=== PATIENT | female | born 1980 | race Caucasian/White ===

== ENCOUNTER 2017-07-22 08:43 | Inpatient (IN) | payer MEDICAID ==
[~2017-07-22] VITALS: Ht 170.2 cm; Wt 104.3 kg
[2017-07-22] VITALS (7 sets, daily range): BP systolic 96–144; BP diastolic 52–79
--- NOTE | 2017-07-22 08:37 | Emergency Room Report ---
History of Present Illness General Source: Patient, EMS Present Illness HPI Patient 36-year-old female brought in by EMS after increased difficulty breathing. Patient gradual onset of symptoms. Patient had prior history of asthma. Patient noted to have previous hospitalizations for asthma. Patient was noted to be on breathing treatment by EMS. Patient had been taking 2 inhalers. The patient reports being a marijuana smoker. She states that she had recently been hospitalized at [facility]. She denies any fever. She reports having intermittent productive cough She denied any pain. History is limited by patient's acuity Allergies: Coded Allergies: PENICILLINS (Verified Allergy, Unknown, 07/22/17) SULFA (SULFONAMIDE ANTIBIOTICS) (Verified Allergy, Unknown, 07/22/17) Patient History Past Medical History: see triage record, asthma Reviewed Nursing Documentation: PMH: Agreed, PSxH: Agreed Review of Systems All Other Systems: limited - by acuity Physical Exam Sp02 EP Interpretation: reviewed, normal General Appearance: normal inspection, alert, GCS 15, moderate distress, obese Head: atraumatic ENT: normal ENT inspection, hearing grossly normal, normal voice Neck: normal inspection, full range of motion, supple, no bony tend Respiratory: normal inspection, no respiratory distress, no retraction, wheezing, expiration Cardiovascular #1: regular rate, rhythm, no edema Gastrointestinal: normal inspection, normal bowel sounds, non tender, soft, no guarding, no hernia Genitourinary: no CVA tenderness Musculoskeletal: normal inspection, back normal, normal range of motion Neurologic: normal inspection, alert, oriented x3, responsive, technical solutions consultant III-XII nml as tested, speech normal Psychiatric: normal inspection, judgement/insight normal, mood/affect normal Skin: normal inspection, normal color, no rash Medical Decision Making Diagnostic Impression: Primary Impression: Asthma exacerbation ER Course The patient presented for cough and difficulty breathing. Difficult differential diagnosis included bronchitis, pneumonia, asthma, foreign body, pertussis among others. The patient was given breathing treatments with with improvement in respiratory status. The patient was noted to have continued wheezing after steroids and treatment. She was given IV magnesium she was noted to have improvement in her blood pressure. The patient states she felt somewhat better however continued to have poor air movementThe chest x-ray one view read by radiology showed questionable right middle lobe infiltrate versus atelectasis. The patient was noted to have elevated white blood count. Dr. Fidel Rizvi was contacted for inpatient management. Labs Test 07/22/17 08:45 White Blood Count 20.1 K/UL (4.8-10.8) Red Blood Count 4.98 M/UL (4.20-5.40) Hemoglobin 15.3 G/DL (12.0-16.0) Hematocrit 45.3 % (37.0-47.0) Mean Corpuscular Volume 91 FL (80-99) Mean Corpuscular Hemoglobin 30.7 PG (27.0-31.0) Mean Corpuscular Hemoglobin Concent 33.7 G/DL (32.0-36.0) Red Cell Distribution Width 10.8 % (11.6-14.8) Platelet Count 344 K/UL (150-450) Mean Platelet Volume 5.5 FL (6.5-10.1) Neutrophils (%) (Auto) % (45.0-75.0) Lymphocytes (%) (Auto) % (20.0-45.0) Monocytes (%) (Auto) % (1.0-10.0) Eosinophils (%) (Auto) % (0.0-3.0) Basophils (%) (Auto) % (0.0-2.0) Sodium Level 141 mEQ/L (135-145) Potassium Level 3.6 mEQ/L (3.4-4.9) Chloride Level 100 mEQ/L (98-107) Carbon Dioxide Level 24 mEQ/L (20-30) Anion Gap 17 (5-15) Blood Urea Nitrogen 13 mg/dL (7-23) Creatinine 0.8 mg/dL (0.5-0.9) Estimat Glomerular Filtration Rate > 60 mL/min (>60) Glucose Level 182 mg/dL (74-106) Calcium Level 8.9 mg/dL (8.6-10.2) Total Bilirubin 0.2 mg/dL (0.0-1.2) Aspartate Amino Transf (AST/SGOT) 20 U/L (5-40) Alanine Aminotransferase (ALT/SGPT) 30 U/L (3-33) Alkaline Phosphatase 58 U/L (35-104) Total Protein 8.9 g/dL (6.6-8.7) Albumin 4.4 g/dL (3.5-5.2) Globulin 4.5 g/dL Albumin/Globulin Ratio 0.9 (1.0-2.7) Status: improved Disposition: ADMITTED INPATIENT Condition: Zechariah Clements Jul 22, 2017 08:37
[~2017-07-22 08:43] MED LIST: ALBUTEROL SULF8.5 GM INH; ATROVENT HFA12.9 GM IH
[2017-07-22] MEDS ORDERED: Albuterol/Ipratropium 3ml neb HHN ONE ×2 (08:45→09:45)
[2017-07-22] MEDS ORDERED: Solu-MEDROL 125mg Inj IVP ONE (08:45)
[2017-07-22 09:16] LABS: MEAN CORPUSCULAR HEMOGLOBIN 30.7 PG (27.0-31.0); MEAN CORPUSCULAR HGB CONC 33.7 G/DL (32.0-36.0); MEAN CORPUSCULAR VOLUME 91 FL (80-99); MEAN PLATELET VOLUME 5.5 FL (6.5-10.1); PLATELET COUNT 344 K/UL (150-450); RED BLOOD COUNT 4.98 M/UL (4.20-5.40); RED CELL DISTRIBUTION WIDTH 10.8 % (11.6-14.8); WHITE BLOOD COUNT 20.1 K/UL (4.8-10.8)
[2017-07-22 09:26] LABS: ALANINE AMINOTRANSFERASE 30 U/L (3-33); ALBUMIN/GLOBULIN RATIO 0.9 (1.0-2.7); ANION GAP 17 (5-15); ASPARTATE AMINO TRANSFERASE 20 U/L (5-40); CALCIUM 8.9 mg/dL (8.6-10.2); CARBON DIOXIDE 24 mEQ/L (20-30); CHLORIDE 100 mEQ/L (98-107); CREATININE 0.8 mg/dL (0.5-0.9); GLOMERULAR FILTRATION RATE > 60 mL/min (>60); HEMOLYSIS 6; POTASSIUM 3.6 mEQ/L (3.4-4.9); SODIUM 141 mEQ/L (135-145); TOTAL PROTEIN 8.9 g/dL (6.6-8.7)
[2017-07-22] MEDS ORDERED: LORazepam 1mg tab ORAL ONE (10:00)
[2017-07-22 10:30] LABS: BAND NEUTROPHILS % (MANUAL) 0 % (0-8); BASOPHILS % (MANUAL) 1 % (0-2); EOSINOPHILS % (MANUAL) 1 % (0-3); LYMPHOCYTES % (MANUAL) 12 % (20-45); NEUTROPHILS % (MANUAL) 80 % (45-75); PLATELET ESTIMATE ADEQUATE; PLATELET MORPHOLOGY NORMAL; TOTAL CELLS COUNTED 100
--- NOTE | 2017-07-22 10:42 | Diagnostic Imaging Report ---
Indication: Shortness of breath Technique: XRAY CHEST 1 V Comparison: None Findings: Cardiomediastinal silhouette is within normal limits. There is slight hazy appearance in the right medial lung base. There is no pneumothorax or pleural effusion. Osseous structures demonstrate no acute abnormality. Impression: Slight hazy appearance in the right medial lung base could represent atelectasis or may be projectional from overlying bronchovascular structures. Possibility of a subtle infiltrate cannot be completely excluded. Clinical correlation/followup recommended.
[2017-07-22] MEDS ORDERED: NORVASC10 MG ORAL (11:23)
[2017-07-22] MEDS ORDERED: ATROVENT HFA12.9 GM IH (11:23)
[2017-07-22] MEDS ORDERED: SINGULAIR10 MG ORAL (11:23)
[2017-07-22] MEDS ORDERED: LORAZEPAM1 MG ORAL (11:30)
[2017-07-22] MEDS ORDERED: SYMBICORT 16010.2 G1 IH (11:30)
[2017-07-22] MEDS ORDERED: TEMAZEPAM30 MG ORAL (11:30)
[2017-07-22] MEDS ORDERED: Morphine Sulfate 2mg/ml Inj IVP PRN (12:00)
[2017-07-22] MEDS ORDERED: LORazepam Inj 2mg/ml 1ml IV PRN (12:00)
[2017-07-22] MEDS ORDERED: Nitroglycerin Subl 0.4mg tab SL PRN (12:00)
[2017-07-22] MEDS ORDERED: Promethazine/Codeine 5ml UD ORAL PRN (12:00)
[2017-07-22 12:17] LABS: REFLEX LACTIC ACID YES OR NO YES
[2017-07-22] MEDS: Albuterol/Ipratropium 3ml neb HHN PRN ×2 (14:36→20:54)
[2017-07-22] MEDS: Solu-MEDROL 125mg Inj IV SCH ×2 (15:19→20:54)
[2017-07-22] MEDS: Ketorolac 30mg Inj IV PRN (15:23)
[2017-07-22] MEDS: DiphenhydrAMINE 50mg/ml Inj IVP PRN (18:35)
--- NOTE | 2017-07-22 19:17 | History & Physical ---
History and Physical History & Physicial H&P dictated [id number] dx asthma exacerbation TIAGO MANDUJANO M.D. Jul 22, 2017 19:17
[2017-07-22] MEDS: Theophylline ER 100mg ORAL SCH (20:54)
[2017-07-22] MEDS: Heparin 5000 units/ml inj SUBQ SCH (20:56)
[2017-07-23 00:04] VITALS: BP 121/72
[2017-07-23] MEDS: Solu-MEDROL 125mg Inj IV SCH ×3 (01:46→11:49)
[2017-07-23] MEDS: Albuterol/Ipratropium 3ml neb HHN PRN ×3 (01:53→14:00)
[2017-07-23] MEDS: Ketorolac 30mg Inj IV PRN (03:06)
[2017-07-23 04:00] VITALS: BP 146/58
--- NOTE | 2017-07-23 06:30 | History and Physical Report ---
DATE OF ADMISSION: 07/22/2017 REASON FOR ADMISSION: Asthma exacerbation. HISTORY OF PRESENT ILLNESS: This is a 36-year-old female with history of asthma, who presented to emergency room with shortness of breathing x1 day. 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 She states that she has had a cold for about a month. She was recently hospitalized 2 weeks ago for an asthma exacerbation and finished her prednisone taper 2 days ago. She does have a cough and runny nose. She denies any fevers. PAST MEDICAL HISTORY: Asthma, hypertension, anxiety, and restless legs syndrome. PAST SURGICAL HISTORY: Gallbladder removed. MEDICATIONS: Reviewed [employer]. PAST SOCIAL HISTORY: The patient does not smoke cigarettes. She does smoke marijuana at times, however, has not smoked in the last 2 weeks. Does not use any other drugs. Drinks alcohol occasionally. FAMILY HISTORY: Noncontributory. REVIEW OF SYSTEMS: Twelve-point review of systems is negative except for pertinent positives as mentioned above. PHYSICAL EXAMINATION: VITAL SIGNS: Temperature is 98.4 degrees, pulse is 114, respiratory rate 20, blood pressure is 135/79, and O2 saturation 100% on 4 liters. GENERAL: In no acute distress. The patient does not have any tripoding or respiratory distress. HEENT: Normocephalic and atraumatic. NECK: Supple. No JVD. LUNGS: Lungs have expiratory wheezing bilaterally. No crackles, rhonchi or rales. CARDIOVASCULAR: Regular rate and rhythm. Normal S1 and S2. ABDOMEN: Soft, nontender, nondistended, and obese. EXTREMITIES: No clubbing, cyanosis, or edema. SKIN: Normal skin on inspection. No rashes. DIAGNOSTIC DATA: Chest x-ray shows slight hazy appearance in the right medial lung, likely atelectasis, however, no infiltrates are seen. LABORATORY DATA: CBC, white count of 20, hemoglobin 15.3, and platelet count of 344,000. BMP, sodium 141, potassium is 3.6, chloride is 100, CO2 24, BUN is 13, and creatinine is 0.8. Lactic acid is 5.6. Urine toxicology is positive for marijuana. ASSESSMENT: 1. Asthma exacerbation, likely secondary to dust exposure from cleaning fans yesterday. 2. History of hypertension. 3. Anxiety. 4. Restless leg syndrome. 5. Obesity. PLAN: 1. Admit the patient to telemetry unit. 2. Pulmonary consult with Dr. Salcido. 3. Nebs as needed. 4. DuoNeb every 4 hour p.r.n. shortness of breath. 5. Solu-Medrol 60 mg IV q.6 h. 6. The patient likely needs much slower taper given her recurrent symptoms on recent hospitalization. 7. Check peak flow daily. Fidel Rizvi MD DR: Arsalan JOB#: [id number] CC:
[2017-07-23 07:53] LABS: MEAN CORPUSCULAR HEMOGLOBIN 32.7 PG (27.0-31.0); MEAN CORPUSCULAR HGB CONC 35.9 G/DL (32.0-36.0); MEAN CORPUSCULAR VOLUME 91 FL (80-99); MEAN PLATELET VOLUME 5.5 FL (6.5-10.1); PLATELET COUNT 281 K/UL (150-450); RED BLOOD COUNT 4.24 M/UL (4.20-5.40); RED CELL DISTRIBUTION WIDTH 11.1 % (11.6-14.8); WHITE BLOOD COUNT 20.5 K/UL (4.8-10.8)
[2017-07-23 08:29] VITALS: BP 139/75
[2017-07-23 08:30] LABS: ANION GAP 13 (5-15); CARBON DIOXIDE 20 MMOL/L (21-32); CHLORIDE 104 MMOL/L (98-107); CREATININE 0.9 MG/DL (0.55-1.30); GLOMERULAR FILTRATION RATE > 60 mL/min (>60); POTASSIUM 3.4 MMOL/L (3.5-5.1); SODIUM 137 MMOL/L (136-145)
[2017-07-23 08:38] LABS: REFLEX LACTIC ACID YES OR NO YES
[2017-07-23 08:44] LABS: CALCIUM 8.8 MG/DL (8.5-10.1)
[2017-07-23] MEDS ORDERED: Montelukast 10mg tablet ORAL SCH (09:00)
[2017-07-23] MEDS: DiphenhydrAMINE 50mg/ml Inj IVP PRN (09:39)
[2017-07-23] MEDS: Theophylline ER 100mg ORAL SCH (09:39)
[2017-07-23] MEDS: Heparin 5000 units/ml inj SUBQ SCH (09:40)
[2017-07-23 10:25] LABS: BAND NEUTROPHILS % (MANUAL) 0 % (0-8); BASOPHILS % (MANUAL) 0 % (0-2); EOSINOPHILS % (MANUAL) 0 % (0-3); LYMPHOCYTES % (MANUAL) 5 % (20-45); NEUTROPHILS % (MANUAL) 94 % (45-75); PLATELET ESTIMATE ADEQUATE; PLATELET MORPHOLOGY NORMAL; TOTAL CELLS COUNTED 100
[2017-07-23 11:55] VITALS: BP 115/71
--- NOTE | 2017-07-23 12:54 | Consultation ---
History of Present Illness General Date patient seen: Jul 23, 2017 Chief Complaint: Dyspnea/Respdistress Present Illness HPI 36-year-old female with hx of Asthma, morbid obesity brought in by EMS after increased difficulty breathing with gradual onset of symptoms. she was exposed to dust while cleaning up somebody's office. She was in respiratory distress and is admitted to telemetry for further work up. Allergies: Coded Allergies: LEVOFLOXACIN (Verified Allergy, Unknown, 07/22/17) PENICILLINS (Verified Allergy, Unknown, 07/22/17) SULFA (SULFONAMIDE ANTIBIOTICS) (Verified Allergy, Unknown, 07/22/17) SULFITE (Verified Allergy, Unknown, asthma exacerbation, 07/22/17) Medication History Scheduled Amlodipine Besylate (Norvasc), 10 MG ORAL DAILY, (Reported) Lorazepam* (Lorazepam*), 1 MG ORAL THREE TIMES A DAY, (Reported) Montelukast Sodium* (Singulair*), 10 MG ORAL DAILY, (Reported) Scheduled PRN Temazepam* (Temazepam*), 30 MG ORAL BEDTIME PRN for Insomnia, (Reported) Miscellaneous Medications Albuterol Sulfate* (Albuterol Sulfate Mdi*), 8.5 GM INH, (Reported) Budesonide/Formoterol Fumarate (Symbicort 160-4.5 Mcg Inhaler), 1 PUFF IH, ( Reported) Ipratropium [place] (Atrovent Hfa), 12.9 GM IH, (Reported) Ipratropium [place] (Atrovent Hfa), 12.9 GM IH, (Reported) Patient History Healthcare decision maker Resuscitation status Full Code Advanced Directive on File Past Medical/Surgical History Past Medical/Surgical History: (1) History of asthma Review of Systems All Other Systems: negative except mentioned in HPI Physical Exam General Appearance: WD/WN Lines, tubes and drains: peripheral HEENT: normocephalic, atraumatic Neck: non-tender, normal alignment Respiratory/Chest: chest wall non-tender, lungs clear Breasts: no masses Cardiovascular/Chest: normal peripheral pulses Abdomen: normal bowel sounds, non tender Genitourinary/Rectal: normal genital exam Extremities: normal range of motion Neurologic: general teller II-XII grossly normal Last 24 Hour Vital Signs Date Time Temp Pulse Resp B/P (MAP) Pulse Ox O2 Delivery O2 Flow Rate FiO2 07/23/17 11:55 98.1 108 20 115/71 95 Room Air 07/23/17 09:38 105 139/75 07/23/17 08:29 97.9 105 20 139/75 96 Room Air 07/23/17 08:03 111 20 98 Nasal Cannula 4.0 36 07/23/17 07:57 103 20 96 Nasal Cannula 4.0 36 07/23/17 07:56 98 Nasal Cannula 4.0 36 07/23/17 07:56 103 20 Nasal Cannula 36 07/23/17 07:56 Nasal Cannula 4.0 36 07/23/17 04:00 98.6 91 20 146/58 98 Room Air 07/23/17 04:00 91 07/23/17 01:54 110 20 99 Nasal Cannula 3.0 32 07/23/17 01:53 100 20 96 Nasal Cannula 3.0 32 07/23/17 00:04 98.6 94 20 121/72 96 Room Air 07/23/17 00:00 94 07/22/17 21:00 118 20 100 Nasal Cannula 4.0 36 07/22/17 20:50 106 20 98 Nasal Cannula 4.0 36 07/22/17 20:48 98.6 99 20 127/76 98 Nasal Cannula 07/22/17 20:00 109 07/22/17 19:30 112 20 Room Air 21 07/22/17 19:30 96 Nasal Cannula 4.0 36 07/22/17 19:30 Nasal Cannula 4.0 36 07/22/17 16:00 108 07/22/17 15:20 98 Nasal Cannula 4.0 36 07/22/17 15:19 Nasal Cannula 4.0 36 07/22/17 14:39 114 20 100 Nasal Cannula 4.0 36 07/22/17 14:30 108 23 98 Nasal Cannula 4.0 36 07/22/17 14:26 98.4 111 22 135/79 98 Nasal Cannula 4.0 07/22/17 14:14 106 07/22/17 13:35 117 20 140/73 97 Room Air 07/22/17 13:00 117 20 140/73 97 Room Air Intake and Output 07/23/17 07/24/17 19:00 07:00 Intake Total 120 ml Balance 120 ml Intake Oral 120 ml # Voids 1 Laboratory Tests Test 07/23/17 06:35 07/23/17 08:45 White Blood Count 20.5 K/UL (4.8-10.8) H Red Blood Count 4.24 M/UL (4.20-5.40) Hemoglobin 13.8 G/DL (12.0-16.0) Hematocrit 38.6 % (37.0-47.0) Mean Corpuscular Volume 91 FL (80-99) Mean Corpuscular Hemoglobin 32.7 PG (27.0-31.0) H Mean Corpuscular Hemoglobin Concent 35.9 G/DL (32.0-36.0) Red Cell Distribution Width 11.1 % (11.6-14.8) L Platelet Count 281 K/UL (150-450) Mean Platelet Volume 5.5 FL (6.5-10.1) L Neutrophils (%) (Auto) % (45.0-75.0) Lymphocytes (%) (Auto) % (20.0-45.0) Monocytes (%) (Auto) % (1.0-10.0) Eosinophils (%) (Auto) % (0.0-3.0) Basophils (%) (Auto) % (0.0-2.0) Differential Total Cells Counted 100 Neutrophils % (Manual) 94 % (45-75) H Lymphocytes % (Manual) 5 % (20-45) L Monocytes % (Manual) 1 % (1-10) Eosinophils % (Manual) 0 % (0-3) Basophils % (Manual) 0 % (0-2) Band Neutrophils 0 % (0-8) Platelet Estimate Adequate Platelet Morphology Normal Red Blood Cell Morphology Normal Sodium Level 137 MMOL/L (136-145) Potassium Level 3.4 MMOL/L (3.5-5.1) L Chloride Level 104 MMOL/L (98-107) Carbon Dioxide Level 20 MMOL/L (21-32) L Anion Gap 13 (5-15) Blood Urea Nitrogen 14 mg/dL (7-18) Creatinine 0.9 MG/DL (0.55-1.30) Estimat Glomerular Filtration Rate > 60 mL/min (>60) Glucose Level 249 MG/DL (74-106) H Lactic Acid Level 2.90 mmol/L (0.66-2.22) H 4.00 mmol/L (0.66-2.22) H Calcium Level 8.8 MG/DL (8.5-10.1) Height (Feet): 5 Height (Inches): 7.00 Weight (Pounds): 230 Medications Current Medications Medications (Trade) Dose Ordered Sig/Isabel Route PRN Reason Start Time Stop Time Status Last Admin Dose Admin Albuterol/ Ipratropium (DuoNeb 0.5-3(2.5)mg/3ml) 3 ml EVERY 4 HOURS PRN HHN dyspnea 07/22/17 12:00 07/27/17 11:59 07/23/17 07:59 Amlodipine Besylate (Norvasc) 10 mg DAILY ORAL 07/23/17 09:00 08/22/17 08:59 07/23/17 09:38 Dextrose (Dextrose 50%) STAT PRN IV Hypoglycemia 07/22/17 12:00 08/21/17 11:59 Diphenhydramine HCl (Benadryl) 25 mg Q6H PRN IVP Itching 07/22/17 18:00 08/21/17 17:59 07/23/17 09:39 Heparin Sodium (Porcine) (Heparin 5000 units/ml) 5,000 units EVERY 12 HOURS SUBQ 07/22/17 21:00 08/21/17 20:59 07/23/17 09:40 Ketorolac Tromethamine (Toradol 30mg) 30 mg EVERY 8 HOURS PRN IV Moderate Pain (Pain Scale 4-6) 07/22/17 12:00 07/27/17 11:59 07/23/17 03:06 Lorazepam (Ativan 2mg/ml 1ml) 0.5 mg Q4H PRN IV For Anxiety 07/22/17 12:00 07/29/17 11:59 Methylprednisolone Sodium Succinate (Solu-MEDROL) 60 mg EVERY 6 HOURS IV 07/22/17 13:30 08/21/17 13:29 07/23/17 11:49 Montelukast Sodium (Singulair) 10 mg DAILY ORAL 07/23/17 09:00 08/22/17 08:59 07/23/17 09:38 Morphine Sulfate (Morphine Sulfate) 2 mg EVERY 4 HOURS PRN IVP Severe Pain (Pain Scale 7-10) 07/22/17 12:00 07/29/17 11:59 Nitroglycerin (Ntg) 0.4 mg Q5M X 3 DOSES PRN SL Prn Chest Pain 07/22/17 12:00 08/21/17 11:59 Ondansetron HCl (Zofran) 4 mg Q6H PRN IVP Nausea & Vomiting 07/22/17 12:00 08/21/17 11:59 Promethazine HCl/ Codeine (Phenergan with Codeine) 5 ml EVERY 6 HOURS PRN ORAL cough 07/22/17 12:00 08/21/17 11:59 Temazepam (Restoril) 15 mg HSPRN PRN ORAL Insomnia 07/22/17 21:00 07/29/17 20:59 07/22/17 22:07 Theophylline (Jaden-Dur) 100 mg EVERY 12 HOURS ORAL 07/22/17 21:00 08/21/17 20:59 07/23/17 09:39 Assessment/Plan Problem List: (1) Asthma exacerbation ICD Codes: J45.901 - Unspecified asthma with (acute) exacerbation SNOMED: 630814072 Assessment/Plan iv steroids respiratory treatment titrate fio2 DISHA HASTINGS Jul 23, 2017 12:54
--- NOTE | 2017-07-23 13:40 | Discharge Instructions ---
Discharge Instructions Discharge Instructions Follow up with: see pmp in 1 wk Call MD/Return to Hospital if: worsening SOB Diet: regular Resume Normal Activity?: Yes Activity: light activity For Congestive Heart Failure Reminder Report to your physician any weight gain of 5 pounds or more in one week. TIAGO MANDUJANO M.D. Jul 23, 2017 13:39
--- NOTE | 2017-07-23 23:10 | Discharge Summary ---
Discharge Summary Hospital Course Date of Admission Jul 22, 2017 at 10:28 Date of Discharge Jul 23, 2017 at 14:15 Admitting Diagnosis asthma exacerbation HPI Sita Singer is a 36 year old female who was admitted on Jul 22, 2017 at 10: 28 for Asthma Exacerbation. she was started on solumedrol 60mg IV Q6hr and Nebs ATC. she was no longer wheezing or SOB on the following day. Discharge Condition Upon Discharge: stable Discharge Disposition Patient was discharged to Home (01) Discharge Diagnoses: Discharge Instructions Discharge Instructions Follow up with: see specialist field engineer in 1 wk Call MD/Return to Hospital if: worsening SOB Activity: light activity TIAGO MANDUJANO M.D. Jul 23, 2017 23:10
--- NOTE | 2017-07-24 08:11 | Cardiology Report ---
APPROVED REPORT EKG Measurement Heart [id number] [place] [id number] Sinus tachycardia Otherwise normal ECG
== END 2017-07-23 14:15 | disposition home or self-care (01) | DRG 141 ==
LOC: EDBD 08:43 → EMR 09:20 → 4E 10:28 → OBSVTOIN 10:28 → EDBEDREQ 12:06 → 2E 13:25
DX: J45.901 Unspecified asthma with (acute) exacerbation (principal); E66.01 Morbid (severe) obesity due to excess calories; I10 Essential (primary) hypertension; F41.9 Anxiety disorder, unspecified; G25.81 Restless legs syndrome; Z68.36 Body mass index [BMI] 36.0-36.9, adult; Z88.1 Allergy status to other antibiotic agents; Z88.0 Allergy status to penicillin; Z88.2 Allergy status to sulfonamides; Z88.8 Allergy status to other drugs, medicaments and biological substances
CPT/HCPCS: 36415; 71010; 80048; 80053; 80300; 81025; 83605; 85007; 85025; 87040; 93005; 94640; 94664; 94760; 99285; J7620; J8499